=== PATIENT | female | born 1985 | race African-American/Black ===

== ENCOUNTER 2016-11-05 04:51 | Emergency (ER) | payer OTHER ==
[~2016-11-05] VITALS: Ht 170.2 cm; Wt 113.4 kg
[~2016-11-05 04:51] MED LIST: ACET12.52 PO; CEPH500C PO; Oxycodone Hcl/Acetaminophen PO; Polyethylene Glycol 3350 PO
--- NOTE | 2016-11-05 05:28 | PHYS DOC ---
Past Medical History Past Medical History: Hypertension, Other Additional Past Medical Histor: Past hx currently not being treated for HTN Past Surgical History: Other Additional Past Surgical Histo: BLADDER REPAIR, LEAP, fx ankle Alcohol Use: Occasionally Drug Use: None Adult General Chief Complaint Chief Complaint: BACK PAIN - NO INJURY HPI HPI Patient is a 31 year old female who presents to the ED today complaining of back pain for approximate 4 month has been intermittent as well as abdominal pain in the midepigastric area as well as some chest discomfort as well too. Patient reports only symptoms of been on and off for approximately 4 month now. Patient reports that is been getting worse over the course of the last couple days. 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 Patient reports that she has a history of hypertension. Denies any diabetes liver longer kidney problems. Patient has any heart failure COPD or coronary artery disease in the past. Patient has not had any abdominal surgeries. Patient reports she did have some kind of bladder procedure done that she believes with a LEEP procedure. Patient smokes but does not drink or do any drugs. Patient currently takes Tylenol Benadryl and Claritin for sinuses. Patient does not take any other medications. Patient is not allergic to any known medicines that she knows of. Patient has any fevers shakes chills nausea or vomiting. Patient reports that she had 3 loose bowel movements today. Patient has a dysuria frequency or urgency. Patient has any hematuria. Patient has any vaginal discharge. Patient reports her last menstrual period was approximately one month ago. Patient's physical exam the ER is significant for tenderness to palpation to her right upper quadrant/midepigastric region. Patient has no rebound or guarding. Patient has no Mendiola sign. Patient has no tenderness at McBurney's point. Patient has normal active bowel sounds. Patient does not present with any signs or symptoms of be consistent with an acute surgical abdomen. Patient does have reproducible tenderness to palpation to her midsternal region. Patient does have reducible tenderness palpation throughout her lower back. Patient does have pain is reproducible when she tries to sit up or twists her torso. The remainder the patient's physical exam is relatively unremarkable. Assessment and plan this is a 31-year-old female who presents today with several complaints including lower back pain, mid back pain, midepigastric abdominal pain, chest discomfort. Patient is clinically and hemodynamically stable. We will send off labs including a CBC, CMP, lipase, UA, UPT urgency test. We will also check a ultrasound of her right upper quadrant to rule out gallstones as the etiology of her abdominal pain and back pain although I think this is less likely. Patient will be given Toradol, Zofran, Dilaudid, and liter of IV fluids while we are waiting for results to come back. Patient is clinically hemodynamically stable at this time and does not present with any signs or symptoms O be consistent with an acute surgical abdomen. Patient was seen and evaluated by me. Workup will be completed and case will be signed out to Dr. Stanley at 6 AM redetermination of patient's disposition pending labs and ultrasound result in reevaluation. Review of Systems Review of Systems Constitutional: Denies fever or chills [] Eyes: Denies change in visual acuity, redness, or eye pain [] HENT: Denies nasal congestion or sore throat [] All other review systems are negative except as documented in history of present illness portion. Current Medications Current Medications Current Medications Medications (Trade) Dose Ordered Sig/Fernando Start Time Stop Time Status Last Admin Dose Admin Hydromorphone HCl (Dilaudid) 0.5 mg 1X ONCE 11/05/16 06:00 11/05/16 06:01 DC 11/05/16 05:48 0.5 MG Ketorolac Tromethamine (Toradol) 15 mg 1X ONCE 11/05/16 06:00 11/05/16 06:01 DC 11/05/16 05:48 15 MG Ondansetron HCl (Zofran) 4 mg 1X ONCE 11/05/16 06:00 11/05/16 06:01 DC 11/05/16 05:48 4 MG Sodium Chloride 1,000 ml @ 1,000 mls/hr 1X ONCE 11/05/16 06:00 11/05/16 06:51 DC 11/05/16 05:48 1,000 MLS/HR Allergies Allergies Allergies Coded Allergies Type Severity Reaction Last Updated Verified No Known Drug Allergies 04/13/14 No Physical Exam Physical Exam Constitutional: Well developed, well nourished, no acute distress, non-toxic appearance. [] HENT: Normocephalic, atraumatic, bilateral external ears normal, oropharynx moist, no oral exudates, nose normal. [] Eyes: PERRLA, EOMI, conjunctiva normal, no discharge. [] Neck: Normal range of motion, no tenderness, supple, no stridor. [] Cardiovascular:Heart rate regular rhythm Lungs & Thorax: Bilateral breath sounds clear to auscultation [] Abdomen: Bowel sounds normal, soft, tenderness to palpation in her upper abdomen greatest in the midepigastric and right upper quadrant region. No masses , no pulsatile masses. [] Skin: Warm, dry, no erythema, no rash. [] Back: Tenderness to palpation diffusely to her lower back greatest in the lower thoracic region. Extremities: No tenderness, no cyanosis, no clubbing, ROM intact, no edema. [] Neurologic: Alert and oriented X 3, normal motor function, normal sensory function, no focal deficits noted. [] Psychologic: Affect normal, judgement normal, mood normal. [] Current Patient Data Vital Signs Vital Signs Date Time Temp Pulse Resp B/P (MAP) Pulse Ox O2 Delivery O2 Flow Rate FiO2 11/05/16 06:30 74 20 157/101 (119) 98 Room Air 11/05/16 05:05 98.2 98.2 Lab Values Laboratory Tests Test 11/05/16 04:17 11/05/16 05:00 11/05/16 05:45 POC Urine HCG, Qualitative Hcg negative (Negative) Urine Collection Type Void Urine Color Yellow Urine Clarity Clear Urine pH 7.5 Urine Specific [place] 1.020 Urine Protein Negative mg/dL (NEG-TRACE) Urine Glucose (UA) Negative mg/dL (NEG) Urine Ketones (Stick) Negative mg/dL (NEG) Urine Blood Negative (NEG) Urine Nitrite Negative (NEG) Urine Bilirubin Negative (NEG) Urine Urobilinogen Dipstick 0.2 mg/dL (0.2 mg/dL) Urine Leukocyte Esterase Negative (NEG) Urine RBC 0 /HPF (0-2) Urine WBC 1-4 /HPF (0-4) Urine Squamous Epithelial Cells Mod /LPF Urine Bacteria Few /HPF (0-FEW) Urine Mucus Mod /LPF White Blood Count 11.7 x10^3/uL (4.0-11.0) H Red Blood Count 4.74 x10^6/uL (3.50-5.40) Hemoglobin 13.2 g/dL (12.0-15.5) Hematocrit 40.5 % (36.0-47.0) Mean Corpuscular Volume 85 fL (79-100) Mean Corpuscular Hemoglobin 28 pg (25-35) Mean Corpuscular Hemoglobin Concent 33 g/dL (31-37) Red Cell Distribution Width 14.2 % (11.5-14.5) Platelet Count 209 x10^3/uL (140-400) Neutrophils (%) (Auto) 54 % (31-73) Lymphocytes (%) (Auto) 36 % (24-48) Monocytes (%) (Auto) 8 % (0-9) Eosinophils (%) (Auto) 2 % (0-3) Basophils (%) (Auto) 0 % (0-3) Neutrophils # (Auto) 6.3 x10^3uL (1.8-7.7) Lymphocytes # (Auto) 4.2 x10^3/uL (1.0-4.8) Monocytes # (Auto) 0.9 x10^3/uL (0.0-1.1) Eosinophils # (Auto) 0.2 x10^3/uL (0.0-0.7) Basophils # (Auto) 0.0 x10^3/uL (0.0-0.2) Sodium Level 138 mmol/L (136-145) Potassium Level 4.1 mmol/L (3.5-5.1) Chloride Level 105 mmol/L (98-107) Carbon Dioxide Level 26 mmol/L (21-32) Anion Gap 7 (6-14) Blood Urea Nitrogen 14 mg/dL (7-20) Creatinine 0.8 mg/dL (0.6-1.0) Estimated GFR (Cockcroft-Gault) 102.6 BUN/Creatinine Ratio 18 (6-20) Glucose Level 101 mg/dL (70-99) H Calcium Level 9.1 mg/dL (8.5-10.1) Total Bilirubin 0.4 mg/dL (0.2-1.0) Aspartate Amino Transferase (AST) 13 U/L (15-37) L Alanine Aminotransferase (ALT) 19 U/L (14-59) Alkaline Phosphatase 54 U/L (46-116) Total Protein 7.8 g/dL (6.4-8.2) Albumin 3.4 g/dL (3.4-5.0) Albumin/Globulin Ratio 0.8 (1.0-1.7) L Lipase 105 U/L (73-393) Laboratory Tests 11/05/16 05:45 Laboratory Tests 11/05/16 05:45 EKG EKG [] Radiology/Procedures Radiology/Procedures US RUQ reportedly negative from the US tech. [] Course & Med Decision Making Course & Med Decision Making Pertinent Labs and Imaging studies reviewed. (See chart for details) pain controlled. Pt appears comfortable. Explained results and need to f/u with PCP and have BP rechecked. Ibuprofen and flexeril RX given, work note. Return precautions. Dragon Disclaimer Dragon Disclaimer This electronic medical record was generated, in whole or in part, using a voice recognition dictation system. Departure Departure Impression: Primary Impression: Gallstone Additional Impression: Back pain Disposition: HOME, SELF-CARE Condition: STABLE Referrals: GABINO LANGFORD MD (PCP) Scripts Ibuprofen (IBUPROFEN) 800 Mg Tablet 800 MG PO PRN TID Y for PAIN, #20 TAB take with food or milk to avoid upsetting stomach Prov: MARTY STANLEY MD 11/05/16 Cyclobenzaprine Hcl (CYCLOBENZAPRINE HCL) 5 Mg Tablet 5 MG PO PRN TID Y for muscle strain, #15 TAB Prov: MARTY STANLEY MD 11/05/16 Problem Qualifiers CORBIN ANDRES MD November 05, 2016 05:28 MARTY STANLEY MD November 05, 2016 06:41
[2016-11-05 05:37] LABS: BILIRUBIN,URINE NEGATIVE (NEG); GLUCOSE,URINE NEGATIVE (NEG); NITRITE,URINE NEGATIVE (NEG); PH,URINE 7.5; PROTEIN,URINE NEGATIVE (NEG-TRACE); UROBILINOGEN,URINE 0.2 mg/dL (0.2 mg/dL)
[2016-11-05] MEDS ORDERED: KETOROLAC 15 MG/ML VIAL. IV ONE (06:00)
[2016-11-05] MEDS ORDERED: ONDANSETRON PF 4 MG/2 ML VIAL. IV ONE (06:00)
[2016-11-05] MEDS ORDERED: IV NORMAL SALINE 1000ML BAG 1,000 ML IV ONE (06:00)
[2016-11-05] MEDS ORDERED: HYDROmorphone 2 MG/ML VIAL IV ONE (06:00)
[2016-11-05 06:05] LABS: BACTERIA,URINE FEW /HPF (0-FEW); RBC,URINE 0 /HPF (0-2); SQUAMOUS EPITHELIAL CELL,UR MOD /LPF
[2016-11-05 06:19] LABS: BASO % 0 % (0-3); EOS % 2 % (0-3); HEMATOCRIT 40.5 % (36.0-47.0); HEMOGLOBIN 13.2 g/dL (12.0-15.5); LYMPH # 4.2 x10^3/uL (1.0-4.8); LYMPH % 36 % (24-48); MEAN CORPUSCULAR HEMOGLOBIN 28 pg (25-35); MEAN CORPUSCULAR HGB CONC 33 g/dL (31-37); MEAN CORPUSCULAR VOLUME 85 fL (79-100); MONO % 8 % (0-9); NEUT % 54 % (31-73); PLATELET COUNT 209 x10^3/uL (140-400); RED BLOOD COUNT 4.74 x10^6/uL (3.50-5.40); RED CELL DISTRIBUTION WIDTH 14.2 % (11.5-14.5); WHITE BLOOD COUNT 11.7 x10^3/uL (4.0-11.0)
[2016-11-05 06:21] LABS: CALCIUM 9.1 mg/dL (8.5-10.1); CREATININE 0.8 mg/dL (0.6-1.0); GFR 102.6; POTASSIUM 4.1 mmol/L (3.5-5.1)
[2016-11-05 06:26] LABS: ALBUMIN 3.4 g/dL (3.4-5.0); ALBUMIN/GLOBULIN RATIO 0.8 (1.0-1.7); TOTAL BILIRUBIN 0.4 mg/dL (0.2-1.0); TOTAL PROTEIN 7.8 g/dL (6.4-8.2)
[2016-11-05 06:30] VITALS: BP 157/101
[2016-11-05] MEDS ORDERED: CYCL5TAB PO (06:37)
[2016-11-05] MEDS ORDERED: IBUP-1060 PO (06:37)
--- NOTE | 2016-11-05 10:22 | EKG ---
[facility] [address] [place] [address] Test Date: 2016-11-05 Test Time: 05:50:57 Pat Name: LAURA ENGLISH Department: Room: Gender: F Ecommerce Marketing Manager: : 1985 Requested By: CORBIN ANDRES Order Number: [id number] Reading MD: Parth Benton Measurements Intervals [employer] Rate: 76 P: 0 WA: 156 QRS: 44 QRSD: 80 T: 8 QT: 382 QTc: 434 Interpretive Statements SINUS RHYTHM Electronically Signed On 11-09-2016 9:30:01 CDT by Parth Benton
--- NOTE | 2016-11-05 12:59 | RAD ---
Tayler Cloud, 11/05/16. Exam performed: Right upper quadrant ultrasound. History: Epigastric right upper quadrant pain and nausea since last night. Date of service: 11/05/16. Comparison: CT abdomen pelvis from 08/28/06. Technique: Real-time grayscale imaging of the right upper abdomen is performed and images are obtained. Findings: The liver is enlarged and demonstrates diffuse hepatic steatosis. It measures up to 20.3 cm in length. There is no intra or extrahepatic biliary ductal dilatation. Common bile duct measures 3.1 mm. Cholelithiasis. No evidence of gallbladder wall thickening of a cholecystic fluid is noted. Right kidney measures 11.7 x 5.2 x 4.9 cm. There is no hydronephrosis or nephrolithiasis. Suboptimal evaluation of the pancreas due to overlying bowel gas. The IVC is normal. Impression: Hepatic steatosis with hepatomegaly. Cholelithiasis. MTDD
== END 2016-11-05 06:45 | disposition home or self-care (01) ==
LOC: ER 04:51
DX: K80.20 Calculus of gallbladder without cholecystitis without obstruction (principal); M54.5 Low back pain; I10 Essential (primary) hypertension
CPT/HCPCS: 36415; 76705; 80053; 81001; 83690; 84703; 85027; 93005; 96361; 96374; 96375; 99285; J1170; J1885; J2405; J7030; 81025

== ENCOUNTER 2016-12-14 08:48 | Day surgery (SDC) | payer OTHER ==
[~2016-12-14] VITALS: Ht 167.6 cm; Wt 111.6 kg
[~2016-12-14 08:48] MED LIST changes: -ACET12.52 PO; +ACET12.54 PO; +BUPIVACAINE-EPI 0.5%-1:200000 50 ML VIAL. ONE; +CYCL5TAB PO; +DEXAMETHASONE SOD PHOS 20 MG/5 ML VIAL. ONE; +IBUP-1060 PO; +IOHEXOL 300 MG/ML 50 ML VIAL. ONE; +IV RINGERS,LACTATED 1000ML 1,000 ML IV SCH; +LIDOCAINE 1% 1 ML SYRINGE. ID PRN; +LIDOCAINE 2% PF Vial for OR 5 ML VIAL. ONE; +ONDANSETRON PF 4 MG/2 ML VIAL. ONE; +PROPOFOL 20 ML IV ONE; +ROCURONIUM 50 MG/5 ML VIAL. ONE; +SURGICEL HEMOSTAT 4X8 EACH. ONE; +fentaNYL PF VIAL 250 MCG/5 ML VIAL ONE
[2016-12-14] MEDS ORDERED: TRIA1CAP3 PO (09:16)
[2016-12-14 09:23] LABS: NEG OBC UR NEG; POS OBC UR POS
[2016-12-14] MEDS ORDERED: IV RINGERS,LACTATED 1000ML 1,000 ML IV SCH ×2 (09:39→09:41)
[2016-12-14] MEDS ORDERED: MIDAZOLAM HCL/PF 2 MG/2 ML VIAL. IV PRN ×2 (09:45)
[2016-12-14] MEDS ORDERED: diphenhydrAMINE 50 MG/ML VIAL IV PRN (09:45)
[2016-12-14] MEDS ORDERED: PROCHLORPERAZINE 10 MG/2 ML VIAL. IV PRN ×2 (09:45)
[2016-12-14] MEDS ORDERED: LIDOCAINE 1% 1 ML SYRINGE. ID PRN ×2 (09:45)
[2016-12-14] MEDS ORDERED: fentaNYL PF VIAL 100 MCG/2 ML VIAL IV PRN ×4 (09:45)
[2016-12-14] MEDS ORDERED: MORPHINE SULFATE 4 MG/ML DISP.SYRIN. IV PRN (09:45)
[2016-12-14] MEDS ORDERED: ONDANSETRON PF 4 MG/2 ML VIAL. IV PRN (09:45)
[2016-12-14] MEDS ORDERED: MEPERIDINE PF 25 MG/ML VIAL. IV PRN (09:45)
[2016-12-14] MEDS ORDERED: MORPHINE SULFATE 2 MG/ML DISP.SYRIN. IV PRN (09:45)
[2016-12-14] MEDS ORDERED: HYDROmorphone 2 MG/ML VIAL IV PRN ×2 (09:45)
[2016-12-14] MEDS ORDERED: ESMOLOL 100 MG/10 ML VIAL. IV ONE (09:58)
[2016-12-14] MEDS ORDERED: NEOSTIGMINE METHYLSULFATE 5 MG/5 ML SYRINGE. ONE (10:00)
[2016-12-14] MEDS ORDERED: GLYCOPYRROLATE 1 MG/5 ML VIAL. ONE (10:00)
[2016-12-14] MEDS ORDERED: KETOROLAC 30 MG/ML INJ FOR OR. INJ ONE (10:02)
[2016-12-14] MEDS ORDERED: SEVOFLURANE 61 TO 120 MINUTES. IH ONE (10:36)
--- NOTE | 2016-12-14 10:39 | RAD ---
Indication operative cholangiogram. For members of the Department of surgery fluoroscopy was provided. 4 spot fluoroscopic images were obtained. Fluoroscopy time associated with the imaging was 22 seconds No filling defects to suggest choledocholithiasis are seen. Contrast flows unremarkably into the duodenum. IMPRESSION: Normal operative cholangiogram
--- NOTE | 2016-12-14 11:01 | PDOC4 ---
Operative Note Operative Note Operative Note: Preoperative Diagnosis: Symptomatic cholelithiasis Postoperative Diagnosis: Same Procedure: Laparoscopic cholecystectomy with intraoperative cholangiogram Surgeons: Vamsi Thorpe.: Yazmin QUAN Anesthesia: Gen. Estimated Blood Loss: 10 mL Specimen: Gallbladder to pathology Drains: None Complications: None Indications: The patient is a 31 year old female who is been experiencing recurrent upper abdominal pain consistent with biliary colic. Her evaluation revealed gallstones. Surgical treatment was offered by means of a laparoscopic cholecystectomy. The risks of surgery were discussed which include bleeding, infection, bile duct injury, bile leak, pain, the potential for additional surgeries or procedures. The patient understands and would like to proceed. Description: The patient was taken to the operating room and laid supine on the operating table. General anesthesia was performed. The abdomen was prepped with ChloraPrep and draped in a standard surgical fashion. A small infraumbilical incision was made with a scalpel. The Veress needle was then inserted and a pneumoperitoneum was then created. A 5 mm trocar was then inserted and the laparoscope was introduced. In the upper midabdomen a 5 mm trocar was inserted and in the right upper quadrant two 2.3 mm mini lap graspers were inserted. The gallbladder was retracted cephalad. The cystic duct was dissected free from surrounding tissues. One clip was placed on the duct near the gallbladder junction. An opening was made in the duct and a cholangiocatheter placed within and secured with a clip. Using contrast dye and fluoroscopy an intraoperative cholangiogram was performed that appeared unremarkable. The clip and catheter were then withdrawn. Three clips were placed on the cystic duct and it was divided. The cystic artery was then identified, dissected free, doubly clipped and divided as well. The gallbladder was then mobilized away from the liver with cautery. The umbilical 5 millimeter trocar was exchanged for an 11 millimeter trocar. The gallbladder was then placed in an endoscopic bag and extracted at the umbilical trocar site. The fascia there was closed with an 0 Vicryl suture. All blood and irrigation fluid was suctioned and hemostasis was good. The remaining ports were removed and the pneumoperitoneum was relieved. The skin incisions were injected with half percent Marcaine with epinephrine, and all were closed using 4-0 Monocryl suture. Steri-Strips and dressings were then applied. The patient tolerated the procedure well and was sent to the recovery room in stable condition. At the end of the case all counts were correct. VERONICA GEE MD Dec 14, 2016 11:01
--- NOTE | 2016-12-14 11:03 | DISCH ---
DISCHARGE INSTRUCTIONS Condition on Discharge Condition on Discharge: Stable Activity After Discharge Activity Instructions for Disc: Other, see below (no lifting over 20 lbs) Driving Instructions after Dis: Other, see below (no driving while taking pain meds) Diet after Discharge Diet after Discharge: Regular Wound Incision Care Wound/Incision Care: Other, see below (may remove bandaids tomorrow and shower , steristrips will fall off on their own) Follow-Up Follow up with: Dr Gee in the office in 2 weeks, call for appointment [phone] VERONICA GEE MD Dec 14, 2016 11:03
[2016-12-14] MEDS: fentaNYL PF VIAL 100 MCG/2 ML VIAL IV PRN ×2 (11:21→11:30)
[2016-12-14] MEDS ORDERED: oxyCODONE/APAP 5/325 1 TAB TABLET PO ONE (11:30)
[2016-12-14 12:30] VITALS: BP 130/89
--- NOTE | 2016-12-15 06:29 | ACF ---
Admission Forms Criteria AMBULATORY SURGERY EXCEPTION CRITERIA Ambulatory Surgery Exception Criteria ( Place 'X' for any and all applicable criteria): Surgery or procedure performed on ambulatory basis may require inpatient stay for[A] ANY ONE of the following(1)(2)(3)(4)(5)(6)(7)(8)(9): [] I. A preoperative situation, condition, or finding that warrants inpatient stay as indicated by ANY ONE of the following: [] a) Inpatient care needed because of severity of a disease or condition rather than the surgery (eg, severe cardiac or respiratory disease, severe infection) (15) (16 ) (17) (18) [] b) Emergent procedure (eg, angioplasty for acute ischemia)(19) [] c) Complex surgical approach or situation as indicated by ANY ONE of the following(3): [] i) Open approach needed instead of usual endoscopic, transcatheter, or other less invasive procedure [] ii) Difficult approach because of previous operation [] iii) Airway monitoring required after open neck procedures(20)(21 ) [] iv) Large mass requiring unusually extensive dissection [] v) Additional complicating feature requiring inpatient care (eg , drain management)(22(23): [] d) Major surgery in a pt with high anesthetic risk as indicated by ANY ONE of the following (2)(3)(5)(7)(8): [] i) ASA risk class III or higher (severe systemic disease impairing function) [D] [] ii) Advanced age (eg, older than 85 years)(14)(24) [] iii) Symptomatic heart failure(25) [] iv) Symptomatic asthma or COPD(8)(21) [] v) Morbid obesity with hemodynamic or respiratory problems(20)( 21)(26)(27) [] vi) Obstructive sleep apnea(20)(21) [] vii) Former premature infants who are younger than 60 weeks [] viii) High risk for severe postoperative abnormalities (eg, severe postoperative hypocalcemia after parathyroidectomy for severe hyperparathyroidism)(27)( 28) [] ix) Unstable angina(25) [] e) Drug-related risk requiring inpatient stay as indicated by ANY ONE of the following(5)(10)(14)(32)(33) [] i) Procedure requires discontinuing drugs or other therapy (eg , antiarrhythmic medication, antiseizure medication), which necessitates inpatient observation or treatment.(18)(31) [] ii) Major surgery and high risk drug use as indicated by ANY ONE of the following: [] 1) Active abuse of cocaine or similar drug [] 2) Monoamine oxidase inhibitor use [] 3) Other drug identified as posing risk [] f) Inadequate outpatient care situation as indicated by ANY ONE of the following(5)(10)(14)(32)(33) [] i) Patient lives remote from medical facility and procedure has urgent complication potential, and temporary nearby residence cannot be arranged [] ii) Patient will have postprocedure incapacitation and inadequate assistance at home, or alternative level of care cannot be arranged. [] iii) Patient will have long general anesthesia or procedure side effect resolution time, and competent person to stay with patient on first postoperative night at home or alternative level of care cannot be arranged. [] iv) Other inadequate outpatient situation that cannot be handled by other means [ ] II. A perioperative event, condition, or finding that warrants inpatient stay as indicated by ANY ONE of the following (1)(2)(3): [] a) Inadequate physiologic recovery: cardiovascular, respiratory, or hemodynamic status not normal or near preoperative baseline(18) [] b) Hemodynamic instability [] c) Patient not alert with near normal or baseline mental status [] d) Temperature not normal or as expected and not appropriate for outpatient treatment of condition [] e) Ambulatory or appropriate activity level status not yet achieved post procedure [E](34)(35)(36) [] f) Operative site not appropriate (eg, unexpected or excessive drainage or bleeding) [ ] g) Postoperative effects not resolved or adequately managed (eg, significant pain or vomiting not appropriate for outpatient or next level of care)(10)(12) [] h) Complicating features requiring inpatient care as indicated by ANY ONE of the following(37): [] i) Severe complications of procedure (eg, bowel injury, airway compromise, vascular injury,severe hemorrhage) [] ii) Extensive (eg, dissection far beyond usual scope of procedure ) or prolonged (eg, 120 minutes beyond usual) surgery needed requiring inpatient postoperative care [] iii) Conversion to an open or complex procedure that requires inpatient care (eg, open vs laparoscopic cholecystectomy, abdominal vs vaginal hysterectomy)(38) [] iv) Comorbid condition or test result identified during or post procedure that requires inpatient care (7) [] v) Malignant hyperthermia(30) [] vi) Other complicating feature requiring inpatient care(22)(23) Inpatient stay may be needed until ALL of the following are present (1)(2)(3)(4) (5)(6)(10)(14)(33)(40): []a) Physiologic recovery: cardiovascular, respiratory, and hemodynamic status normal or near preoperative baseline []b) Hemodynamic stability []c) Patient alert, with near normal or baseline mental status []d) Temperature appropriate: patient afebrile or temperature appropriate for outpt treatment of condition []e) Activity level appropriate: ambulatory or appropriate activity level post procedure []f) Operative site appropriate as indicated by ALL of the following: []i) Site dry or with expected drainage []ii) Any blood noted is as expected for procedure. []g) Postoperative effects resolved or managed as indicated by ALL of the following: []i) Pain management appropriate for outpatient (or next level of) care(10) []ii) Minimal nausea and vomiting: if present, successfully treated with oral medication(12) []iii) Headache, dizziness, or drowsiness (if present) are mild. []h) Voiding status acceptable as indicated by ANY ONE of the following: []i) Voiding spontaneously []ii) No voiding but instructions given for follow-up in 6 to 8 hours []iii) Urinary catheter in place, and instructions given for follow-up []i) Complicating features requiring inpatient care manageable at a lower level of care(37) []j) Comorbid conditions manageable at a lower level of care(37) The original [employer] content created by [employer] has been revised. The portions of the content which have been revised are identified through the use of italic text or in bold, and [employer] has neither reviewed nor approved the modified material. All other unmodified content is copyright [employer]. Please see references footnoted in the original [employer] edition 2016 JOANIE ALVARES Dec 15, 2016 06:29
--- NOTE | 2016-12-15 22:49 | PATHOLOGY ---
PATHOLOGY REPORT * * * * * * * * FINAL DIAGNOSIS: Gallbladder "gallbladder and contents", cholecystectomy: - Moderate chronic cholecystitis with cholelithiasis. - The attached lymph node reveals reactive changes. REPORT ELECTRONICALLY SIGNED BY: Carmelo Luu M.D. DATE/TIME: 12/15/2016 22:48 * * * * * * * * GROSS PATHOLOGY: Received in formalin labeled "Tayler English, gallbladder and contents," is a 8.4 x 2.85 x 1.2 cm, intact gallbladder with purple carroll serosal surfaces. Opening the gallbladder reveals yellow red, velvety mucosa and an average wall thickness of 0.3 cm. Calculi are present and no masses are noted grossly. Supplier Quality Specialist sections from the body and fundus are submitted along with the proximal margin in cassette A1. Along the serosal surface of the neck of the gallbladder there is a 0.8 cm pink hernandez rubbery lymph node. This is submitted in toto, also in cassette A1. (SHA; 12/14/16) INITIAL CPT CODE(S): A; 59284 Professional services [place] [address] Technical services performed by [facility] at [address] [place] [address] [address] [address]. SPECIMEN(S) RECEIVED: A.Gallbladder and contents CLINICAL HISTORY: Symptomatic cholelithiasis PATIENT: TAYLER ENGLISH /AGE: 9 1985 (Age: 31) PATIENT #: [id number] ALT CASE #: SPECIMEN COLLECTION DATE: 12/14/2016 SPECIMEN RECEIVED DATE: 12/14/2016 [facility] - [address] [place] [address] - PHONE: [phone] * * * END OF REPORT * * *
== END 2016-12-14 13:34 | disposition home or self-care (01) ==
LOC: SURG 08:48
PROVIDERS: ATTEND Surgery
DX: K80.10 Calculus of gallbladder with chronic cholecystitis without obstruction (principal); I10 Essential (primary) hypertension; K21.9 Gastro-esophageal reflux disease without esophagitis; E66.9 Obesity, unspecified; Z68.28 Body mass index [BMI] 28.0-28.9, adult; F17.200 Nicotine dependence, unspecified, uncomplicated; M19.90 Unspecified osteoarthritis, unspecified site; Z72.0 Tobacco use; Z87.39 Personal history of other diseases of the musculoskeletal system and connective tissue; Z72.89 Other problems related to lifestyle; Z86.69 Personal history of other diseases of the nervous system and sense organs; Z91.018 Allergy to other foods
CPT/HCPCS: 47563; 74300; 81025; C1769; J0690; J0780; J1100; J1200; J1885; J2270; J2405; J2704; J2710; J3010; J3490; J7030; Q9967

== ENCOUNTER 2018-08-10 18:45 | Emergency (ER) | payer OTHER ==
[~2018-08-10] VITALS: Ht 170.2 cm; Wt 112.0 kg
[~2018-08-10 18:45] MED LIST changes: -BUPIVACAINE-EPI 0.5%-1:200000 50 ML VIAL. ONE; -DEXAMETHASONE SOD PHOS 20 MG/5 ML VIAL. ONE; -IOHEXOL 300 MG/ML 50 ML VIAL. ONE; -IV RINGERS,LACTATED 1000ML 1,000 ML IV SCH; -LIDOCAINE 1% 1 ML SYRINGE. ID PRN; -LIDOCAINE 2% PF Vial for OR 5 ML VIAL. ONE; -ONDANSETRON PF 4 MG/2 ML VIAL. ONE; -PROPOFOL 20 ML IV ONE; -ROCURONIUM 50 MG/5 ML VIAL. ONE; -SURGICEL HEMOSTAT 4X8 EACH. ONE; +TRIA1CAP3 PO; -fentaNYL PF VIAL 250 MCG/5 ML VIAL ONE
[2018-08-10 19:15] VITALS: BP 141/84
[2018-08-10] MEDS ORDERED: KETOROLAC 15 MG/ML VIAL. IM ONE (19:15)
[2018-08-10] MEDS ORDERED: MELO7.5T29 PO (19:18)
[2018-08-10] MEDS ORDERED: ORPH100T PO (19:18)
--- NOTE | 2018-08-10 19:18 | PHYS DOC ---
Past Medical History Past Medical History: Hypertension, Other Additional Past Medical Histor: Past hx currently not being treated for HTN Past Surgical History: Other Additional Past Surgical Histo: BLADDER REPAIR, LEAP, fx ankle Alcohol Use: Occasionally Drug Use: None Adult General Chief Complaint Chief Complaint: BACK PAIN OR INJURY HPI HPI Patient is a 33 year old female who presents with low back pain. Patient was bending over to dry her legs after showering and felt and heard a crack causing immediate low back pain. There is been no loss of bowel or bladder control. No pain relief with home measures. No fever. No history of previous back surgery. No personal history of cancer. Patient has been able to ambulate with pain in her back.[] Review of Systems Review of Systems Constitutional: Denies fever or chills [] Eyes: Denies change in visual acuity, redness, or eye pain [] HENT: Denies nasal congestion or sore throat [] Respiratory: Denies cough or shortness of breath [] Cardiovascular: No chest pain or palpitations[] GI: Denies abdominal pain, nausea, vomiting, bloody stools or diarrhea [] : Denies dysuria or hematuria [] Musculoskeletal: Denies joint pain other than the back pain noted in the history of present illness[] Integument: Denies rash or skin lesions [] Neurologic: Denies headache, focal weakness or sensory changes [] Endocrine: Denies polyuria or polydipsia [] All other systems were reviewed and found to be within normal limits, except as documented in this note. Allergies Allergies Allergies Coded Allergies Type Severity Reaction Last Updated Verified avocado Allergy Severe Swelling 12/14/16 Yes Physical Exam Physical Exam Constitutional: Well developed, well nourished, no acute distress, non-toxic appearance. [] HENT: Normocephalic, atraumatic, bilateral external ears normal, oropharynx moist, no oral exudates, nose normal. [] Eyes: PERRLA, EOMI, conjunctiva normal, no discharge. [] Neck: Normal range of motion, no tenderness, supple, no stridor. [] Cardiovascular:Heart rate regular rhythm, no murmur [] Lungs & Thorax: Bilateral breath sounds clear to auscultation [] Abdomen: Bowel sounds normal, soft, no tenderness, no masses, no pulsatile masses. [] Skin: Warm, dry, no erythema, no rash. [] Back: No CVA tenderness. Mild back discomfort, full active range of motion, DTRs are 2 over 4 and symmetric, normal gait, no change in pain with normal walking, tiptoe walking, or heel walking.[] Extremities: No tenderness, no cyanosis, no clubbing, ROM intact, no edema. [] Neurologic: Alert and oriented X 3, normal motor function, normal sensory function, no focal deficits noted. [] Psychologic: Affect normal, judgement normal, mood normal. [] EKG EKG [] Radiology/Procedures Radiology/Procedures [] Course & Med Decision Making Course & Med Decision Making Pertinent Labs and Imaging studies reviewed. (See chart for details) Medical decision making: Patient had previous x-rays taken this past summer. The absence of any red flags such as fever, loss of bowel or bladder control, or personal history of cancer, do not see any indication for additional imaging at this time. Discussed risks and benefits of this with the patient who voiced understanding. All questions were answered. She also denied any chance of her being so we'll treat this with NSAIDs as well as muscle relaxants.[] Dragon Disclaimer Dragon Disclaimer This electronic medical record was generated, in whole or in part, using a voice recognition dictation system. Departure Departure Impression: Primary Impression: Back pain Disposition: 01 HOME, SELF-CARE Condition: IMPROVED Referrals: TATUM FERNANDEZ APRN (PCP) Follow-up up in 2 days Patient Instructions: Back Exercises, Back Pain, Adult Additional Instructions: Follow up with your regular doctor in 2 days. Rest. Keep moving and followed the exercises. Return to the ER if worsening pain, loss of bowel or bladder control, fever of more than 101, or any other concerns. Scripts Orphenadrine Citrate (ORPHENADRINE CITRATE) 100 Mg Tablet.er 100 MG PO BID, #20 TAB.SR Prov: KHADRA ALCALA DO 08/10/18 Meloxicam (MELOXICAM) 7.5 Mg Tablet 7.5 MG PO DAILY, #20 TAB Prov: KHADRA ALCALA DO 08/10/18 Problem Qualifiers Primary Impression: Back pain Back pain location: low back pain Chronicity: acute Back pain laterality: midline Sciatica presence: without sciatica Qualified Codes: M54.5 - Low back pain KHADRA ALCALA DO Aug 10, 2018 19:18
== END 2018-08-10 20:05 | disposition home or self-care (01) ==
LOC: ER 18:45
DX: M54.5 Low back pain (principal); I10 Essential (primary) hypertension; Z91.018 Allergy to other foods; X50.9XXA Other and unspecified overexertion or strenuous movements or postures, initial encounter; Y93.89 Activity, other specified; Y92.89 Other specified places as the place of occurrence of the external cause; Y99.8 Other external cause status
CPT/HCPCS: 96372; 99284; J1885

== ENCOUNTER 2018-11-18 08:20 | Emergency (ER) | payer OTHER ==
[~2018-11-18] VITALS: Ht 167.6 cm; Wt 112.0 kg
[~2018-11-18 08:20] MED LIST changes: +MELO7.5T29 PO; +ORPH100T PO
--- NOTE | 2018-11-18 08:51 | PHYS DOC ---
Past Medical History Past Medical History: Hypertension, Other Additional Past Medical Histor: Past hx currently not being treated for HTN (JOSIAH TELLEZ APRN) Past Surgical History: Other Additional Past Surgical Histo: BLADDER REPAIR, LEAP, fx ankle (JOSIAH TELLEZ APRN) Smoking: Cigarettes Alcohol Use: Occasionally Drug Use: None (JOSIAH TELLEZ APRN) Adult General Chief Complaint Chief Complaint: CONSTIPATION HPI HPI Patient is a 33 year old female who presents with feeling of constipation 2 months. The patient has been seen at [facility] a couple weeks ago prescribed MiraLAX. Patient initially took MiraLAX stopped taking after stating it was not working. Patient is also recently been taking weight loss pills but ran out yesterday. States she has had blood when she wipes has been ongoing for 2 months. Rates pain 8 out of 10 and throbbing, sharp. Also has tried intervention at home of family members unknown constipation pill. (JOSIAH TELLEZ APRN) Review of Systems Review of Systems Constitutional: Denies fever or chills [] Eyes: Denies change in visual acuity, redness, or eye pain [] HENT: Denies nasal congestion or sore throat [] Respiratory: Denies cough or shortness of breath [] Cardiovascular: No additional information not addressed in HPI [] GI: Denies abdominal pain, nausea, vomiting,or diarrhea Reports bloody stools and constipation. : Denies dysuria or hematuria [] Musculoskeletal: Denies back pain or joint pain [] Integument: Denies rash or skin lesions [] Neurologic: Denies headache, focal weakness or sensory changes [] Endocrine: Denies polyuria or polydipsia [] Complete systems were reviewed and found to be within normal limits, except as documented in this note. (JOSIAH TELLEZ APRN) Current Medications Current Medications Current Medications Medications (Trade) Dose Ordered Sig/Fernando Start Time Stop Time Status Last Admin Dose Admin Potassium Chloride (Klor-Con) 40 meq 1X ONCE 11/18/18 11:15 11/18/18 11:16 DC 11/18/18 11:16 40 MEQ (JOSIAH BANDA DO) Allergies Allergies Allergies Coded Allergies Type Severity Reaction Last Updated Verified avocado Allergy Severe Swelling 12/14/16 Yes tramadol Allergy Unknown hives 08/10/18 No (JOSIAH BANDA DO) Physical Exam Physical Exam Constitutional: Well developed, well nourished, no acute distress, non-toxic appearance. [] HENT: Normocephalic, atraumatic, bilateral external ears normal, oropharynx moist, no oral exudates, nose normal. [] Eyes: PERRLA, EOMI, conjunctiva normal, no discharge. [] Neck: Normal range of motion, no tenderness, supple, no stridor. [] Cardiovascular:Heart rate regular rhythm, no murmur [] Lungs & Thorax: Bilateral breath sounds clear to auscultation [] Abdomen: Bowel sounds hyporeactive, soft, no tenderness, no masses, no pulsatile masses. [] Skin: Warm, dry, no erythema, no rash. [] Back: No tenderness, no CVA tenderness. [] Extremities: No tenderness, no cyanosis, no clubbing, ROM intact, no edema. [] Neurologic: Alert and oriented X 3, normal motor function, normal sensory function, no focal deficits noted. [] Psychologic: Affect normal, judgement normal, mood normal. [] (JOSIAH TELLEZ APRN) Current Patient Data Vital Signs Vital Signs Date Time Temp Pulse Resp B/P (MAP) Pulse Ox O2 Delivery O2 Flow Rate FiO2 11/18/18 11:00 104 20 133/101 (112) 100 Room Air 11/18/18 08:46 98.1 98.1 (JOSIAH BANDA DO) Lab Values Laboratory Tests Test 11/18/18 08:55 11/18/18 09:04 11/18/18 09:42 Stool Occult Blood Positive (NEG) White Blood Count 11.0 x10^3/uL (4.0-11.0) Red Blood Count 4.74 x10^6/uL (3.50-5.40) Hemoglobin 13.3 g/dL (12.0-15.5) Hematocrit 40.2 % (36.0-47.0) Mean Corpuscular Volume 85 fL (79-100) Mean Corpuscular Hemoglobin 28 pg (25-35) Mean Corpuscular Hemoglobin Concent 33 g/dL (31-37) Red Cell Distribution Width 14.1 % (11.5-14.5) Platelet Count 292 x10^3/uL (140-400) Neutrophils (%) (Auto) 60 % (31-73) Lymphocytes (%) (Auto) 28 % (24-48) Monocytes (%) (Auto) 9 % (0-9) Eosinophils (%) (Auto) 2 % (0-3) Basophils (%) (Auto) 1 % (0-3) Neutrophils # (Auto) 6.6 x10^3uL (1.8-7.7) Lymphocytes # (Auto) 3.1 x10^3/uL (1.0-4.8) Monocytes # (Auto) 1.0 x10^3/uL (0.0-1.1) Eosinophils # (Auto) 0.3 x10^3/uL (0.0-0.7) Basophils # (Auto) 0.1 x10^3/uL (0.0-0.2) Sodium Level 138 mmol/L (136-145) Potassium Level 3.3 mmol/L (3.5-5.1) L Chloride Level 99 mmol/L (98-107) Carbon Dioxide Level 30 mmol/L (21-32) Anion Gap 9 (6-14) Blood Urea Nitrogen 14 mg/dL (7-20) Creatinine 1.5 mg/dL (0.6-1.0) H Estimated GFR (Cockcroft-Gault) 49.0 BUN/Creatinine Ratio 9 (6-20) Glucose Level 109 mg/dL (70-99) H Calcium Level 8.7 mg/dL (8.5-10.1) Total Bilirubin 0.2 mg/dL (0.2-1.0) Aspartate Amino Transferase (AST) 27 U/L (15-37) Alanine Aminotransferase (ALT) 59 U/L (14-59) Alkaline Phosphatase 55 U/L (46-116) Total Protein 7.2 g/dL (6.4-8.2) Albumin 3.4 g/dL (3.4-5.0) Albumin/Globulin Ratio 0.9 (1.0-1.7) L Laboratory Tests 11/18/18 09:04 Laboratory Tests 11/18/18 09:42 (JOSIAH BANDA DO) Lab Values Laboratory Tests Test 11/18/18 08:55 11/18/18 09:04 11/18/18 09:42 Stool Occult Blood Positive (NEG) White Blood Count 11.0 x10^3/uL (4.0-11.0) Red Blood Count 4.74 x10^6/uL (3.50-5.40) Hemoglobin 13.3 g/dL (12.0-15.5) Hematocrit 40.2 % (36.0-47.0) Mean Corpuscular Volume 85 fL (79-100) Mean Corpuscular Hemoglobin 28 pg (25-35) Mean Corpuscular Hemoglobin Concent 33 g/dL (31-37) Red Cell Distribution Width 14.1 % (11.5-14.5) Platelet Count 292 x10^3/uL (140-400) Neutrophils (%) (Auto) 60 % (31-73) Lymphocytes (%) (Auto) 28 % (24-48) Monocytes (%) (Auto) 9 % (0-9) Eosinophils (%) (Auto) 2 % (0-3) Basophils (%) (Auto) 1 % (0-3) Neutrophils # (Auto) 6.6 x10^3uL (1.8-7.7) Lymphocytes # (Auto) 3.1 x10^3/uL (1.0-4.8) Monocytes # (Auto) 1.0 x10^3/uL (0.0-1.1) Eosinophils # (Auto) 0.3 x10^3/uL (0.0-0.7) Basophils # (Auto) 0.1 x10^3/uL (0.0-0.2) Sodium Level 138 mmol/L (136-145) Potassium Level 3.3 mmol/L (3.5-5.1) L Chloride Level 99 mmol/L (98-107) Carbon Dioxide Level 30 mmol/L (21-32) Anion Gap 9 (6-14) Blood Urea Nitrogen 14 mg/dL (7-20) Creatinine 1.5 mg/dL (0.6-1.0) H Estimated GFR (Cockcroft-Gault) 49.0 BUN/Creatinine Ratio 9 (6-20) Glucose Level 109 mg/dL (70-99) H Calcium Level 8.7 mg/dL (8.5-10.1) Total Bilirubin Pending Aspartate Amino Transferase (AST) Pending Alanine Aminotransferase (ALT) Pending Alkaline Phosphatase Pending Total Protein Pending Albumin Pending Albumin/Globulin Ratio Pending Laboratory Tests 11/18/18 09:04 Laboratory Tests 11/18/18 09:42 (JOSIAH TELLEZ APRN) EKG EKG [] (JOSIAH TELLEZ APRN) Radiology/Procedures Radiology/Procedures Performed rectal exam. Patient has extreme tenderness. No blood or external hemorrhoids noted. Sent fecal occult blood down. PATIENT: LAURA ENGLISH ACCOUNT: [id number] : 1985 LOCATION: ER AGE: 33 SEX: F EXAM STATUS: REG ER ORD. PHYSICIAN: JOSIAH TELLEZ APRN REASON: pain PROCEDURE: ABDOMEN SUPINE & UPRIGHT ABDOMEN SUPINE UPRIGHT Clinical Indication: Abdominal pain Comparison: None. Findings: Mild scattered air in the colon. No dilated small bowel. No air-fluid levels on the upright image. No obvious opacity in the lung bases. No large volume pneumoperitoneum. Cholecystectomy clips. Small amount of air in the rectum. Phleboliths in the pelvis. No obvious organomegaly. Bones unremarkable. IMPRESSION: Nonobstructive bowel gas pattern. Electronically signed by: Wesley Carney MD (11/18/2018 10:55 AM) [id number] (JOSIAH TELLEZ APRN) Course & Med Decision Making Course & Med Decision Making Pertinent Labs and Imaging studies reviewed. (See chart for details) Will get an upright abdominal film to evaluate for constipation, rectal exam, and labs. Patient is agreeable. Labs were unremarkable. Hemoglobin is stable and patient has been having symptoms for 2 months. Imaging showed gas but no constipation or obstruction. Will d/c home for follow up with pcp and GI. (JOSIAH TELLEZ APRN) Dragon Disclaimer Dragon Disclaimer This electronic medical record was generated, in whole or in part, using a voice recognition dictation system. (JOSIAH TELLEZ APRN) Departure Departure Impression: Primary Impression: Rectal bleeding Disposition: HOME, SELF-CARE Condition: STABLE Referrals: TATUM FERNANDEZ APRN (PCP) VERONICA MONTEIRO MD Additional Instructions: Please follow up with your primary care doctor and a GI doctor about this issue. Return to ER as needed. Attending Signature Attending Signature I have reviewed the PA/SANDBLAST CARVER's note and plan of care. I was available for consultation as needed during the patient's visit in the emergency department. I agree with the clinical impression, plan, and disposition. (JOSIAH BANDA DO) JOSIAH TELLEZ APRN November 18, 2018 08:51 JOSIAH BANDA DO November 20, 2018 04:56
[2018-11-18 09:13] LABS: FECAL OB PT POSITIVE (NEG)
[2018-11-18 09:18] LABS: BASO # 0.1 x10^3/uL (0.0-0.2); BASO % 1 % (0-3); EOS # 0.3 x10^3/uL (0.0-0.7); EOS % 2 % (0-3); HEMATOCRIT 40.2 % (36.0-47.0); HEMOGLOBIN 13.3 g/dL (12.0-15.5); LYMPH # 3.1 x10^3/uL (1.0-4.8); LYMPH % 28 % (24-48); MEAN CORPUSCULAR HEMOGLOBIN 28 pg (25-35); MEAN CORPUSCULAR HGB CONC 33 g/dL (31-37); MEAN CORPUSCULAR VOLUME 85 fL (79-100); MONO % 9 % (0-9); NEUT # 6.6 x10^3uL (1.8-7.7); NEUT % 60 % (31-73); PLATELET COUNT 292 x10^3/uL (140-400); RED BLOOD COUNT 4.74 x10^6/uL (3.50-5.40); RED CELL DISTRIBUTION WIDTH 14.1 % (11.5-14.5)
[2018-11-18 09:58] LABS: CALCIUM 8.7 mg/dL (8.5-10.1); CREATININE 1.5 mg/dL (0.6-1.0); POTASSIUM 3.3 mmol/L (3.5-5.1)
--- NOTE | 2018-11-18 10:58 | RAD ---
ABDOMEN SUPINE UPRIGHT Clinical Indication: Abdominal pain Comparison: None. Findings: Mild scattered air in the colon. No dilated small bowel. No air-fluid levels on the upright image. No obvious opacity in the lung bases. No large volume pneumoperitoneum. Cholecystectomy clips. Small amount of air in the rectum. Phleboliths in the pelvis. No obvious organomegaly. Bones unremarkable. IMPRESSION: Nonobstructive bowel gas pattern. Electronically signed by: Wesley Carney MD (11/18/2018 10:55 AM) [id number]
[2018-11-18 11:00] VITALS: BP 133/101
[2018-11-18] MEDS ORDERED: POTASSIUM CHLORIDE 20 MEQ TABLET.ER. PO ONE (11:15)
[2018-11-18 11:40] LABS: ALBUMIN 3.4 g/dL (3.4-5.0); ALBUMIN/GLOBULIN RATIO 0.9 (1.0-1.7); TOTAL BILIRUBIN 0.2 mg/dL (0.2-1.0); TOTAL PROTEIN 7.2 g/dL (6.4-8.2)
== END 2018-11-18 11:22 | disposition home or self-care (01) ==
LOC: ER 08:20
DX: K62.5 Hemorrhage of anus and rectum (principal); K59.00 Constipation, unspecified; I10 Essential (primary) hypertension; F17.210 Nicotine dependence, cigarettes, uncomplicated; Z98.890 Other specified postprocedural states; Z91.018 Allergy to other foods; Z88.6 Allergy status to analgesic agent
CPT/HCPCS: 36415; 74021; 80053; 82274; 85025; 99285-25